=== PATIENT | female | born 1950 | race Caucasian/White ===

== ENCOUNTER → 2022-05-19 | Outpatient (CLI) | payer MEDICARE, OTHER ==
[~2022-05-19] MED LIST: ASPIR-LOW81 MG PO; ASPIRIN 81M81 MG/TA2 PO; COREG 6.256.25 MG/TA PO; DEXILANT30 MG PO; FISH OIL500 MG PO; HUMALOG100 U/ML SC; LANOXIN 0.120.125 MG PO; LEVEMIR100 U/ML SC; LIPITOR 80MG80 MG PO; PRINIVIL20 MG PO; ZOCOR40 MG PO; blood pressure med; epipen
== END ==
LOC: COL.VAS 13:13
DX: I34.0 Nonrheumatic mitral (valve) insufficiency (principal); I51.7 Cardiomegaly; I50.9 Heart failure, unspecified; U09.9 Post COVID-19 condition, unspecified

== ENCOUNTER 2022-07-30 15:46 | Outpatient (RCR) | payer MEDICARE, OTHER | END 2022-08-01 | disposition home or self-care (01) | LOC: COL.CR | DX: I25.10 Atherosclerotic heart disease of native coronary artery without angina pectoris (principal); I50.41 Acute combined systolic (congestive) and diastolic (congestive) heart failure; U09.9 Post COVID-19 condition, unspecified; E11.65 Type 2 diabetes mellitus with hyperglycemia ==

== ENCOUNTER → 2022-09-01 | Outpatient (RCR) | payer MEDICARE, OTHER | END | disposition home or self-care (01) | LOC: COL.CR | DX: I25.10 Atherosclerotic heart disease of native coronary artery without angina pectoris (principal); I50.41 Acute combined systolic (congestive) and diastolic (congestive) heart failure; U09.9 Post COVID-19 condition, unspecified; E11.65 Type 2 diabetes mellitus with hyperglycemia ==